=== PATIENT | male | born 1955 | race Caucasian/White ===

== ENCOUNTER 2018-04-04 18:58 | Emergency (ER) | payer OTHER ==
[~2018-04-04] VITALS: Ht 188 cm; Wt 77.1 kg
[2018-04-04] MEDS ORDERED: NS 100ML 100 ML IV ONE (18:59)
[2018-04-04] MEDS ORDERED: ROCEPHIN ONE (18:59)
[2018-04-04] MEDS ORDERED: SOLU-MEDROL ONE (18:59)
[2018-04-04] MEDS ORDERED: DUONEB 0.5 MG-3 MG/3 ML SOLN IH ONE (19:00)
[2018-04-04] MEDS ORDERED: DUONEB 0.5 MG-3 MG/3 ML SOLN IH STA (19:02)
[2018-04-04] MEDS ORDERED: SOLU-MEDROL IV STA (19:02)
--- NOTE | 2018-04-04 19:05 | NUR ---
Solu medrol 125 mg IVP.
--- NOTE | 2018-04-04 19:08 | NUR ---
Rocephin 1 gram in 100 cc NS IVPB.
--- NOTE | 2018-04-04 19:11 | ER.PDOC ---
General Chief Complaint: General Complaint Stated Complaint: POSSIBLE STROKE Time seen by MD: 19:02 Source: patient, EMS Exam Limitations: clinical condition History of Present Illness Initial Comments pt awake alert but wont talk,sob x 8 days Severity: mild, moderate Activities at Onset: activity/exertion Prior Episodes/Possible Cause: unknown cause Associated Symptoms: denies symptoms Prior symptoms/Treatment: Similar symptoms previous Allergies: Coded Allergies: Penicillins (Verified Allergy, Unknown, Shortness of Breath, 04/04/18) Past Medical History Medical History: COPD Surgical History: no surgical history Family History Significant Family History: no pertinent family hx Social History Smoking: cigarettes Review of Systems Constitutional: no symptoms reported EENTM: no symptoms reported Respiratory: no symptoms reported, see HPI, cough, shortness of breath Cardiovascular: no symptoms reported Gastrointestinal: no symptoms reported Musculoskeletal: no symptoms reported Skin: no symptoms reported Psychiatric/Neurological: no symptoms reported Endocrine: no symptoms reported All Other Systems: Reviewed and Negative Physical Exam General Appearance: No Apparent Distress, WD/WN HEENT: PERRL/EOMI, Normal ENT Inspection Neck: Non-Tender Respiratory: chest non-tender, lungs clear, normal breath sounds, no respiratory distress Cardiovascular: Normal Peripheral Pulses Gastrointestinal: Normal Bowel Sounds Extremities: Normal Range of Motion Neurologic/Psychiatric: missileman II-XII NML as Tested, No Motor/Sensory Deficits, Alert, Other (wont talk) Skin: Normal Color Lymphatic: No Adenopathy Results/Orders Results/Orders Laboratory Tests Test 04/04/18 19:14 04/04/18 19:32 04/04/18 19:38 Blood Gas Sample Site LEFT BRACHIAL ARTRY Blood Gas pH 7.483 (7.350-7.450) Blood Gas PCO2 27.6 mmHg (35.0-45.0) Blood Gas PO2 126.7 mmHg (75.0-100.0) Blood Gas HCO3 20.2 mmol/L (22.0-26.0) Blood Gas Base Excess -1.7 mmol/L (-2.0-2.0) Oswaldo Test N/A Arterial Blood Oxygen Saturation 98.4 % (95-) Deoxyhemoglobin 1.6 % (0.2-0.6) Carboxyhemoglobin 1.7 % (0.5-1.5) Methemoglobin 0.3 % (0.2-0.6) Total Hemoglobin 15.0 % (13.5-17.5) Total Oxygen Concentration 20.5 % (13.5-17.5) Lactic Acid (Blood Gas) 3.0 MMOL/L (0.5-1.0) Blood Gas Temperature 37 Oxygen Delivery Method (LAB) HI CON FiO2 100.0 % (20-101) Bicarbonate 21.1 mmol/L (23-27) White Blood Count 17.0 10^3/uL (4.5-11.0) Red Blood Count 4.89 10^6/uL (4.50-5.90) Hemoglobin 14.1 g/dL (13.9-16.3) Hematocrit 44.7 % (37.0-53.0) Mean Corpuscular Volume 91.4 fL (78-100) Mean Corpuscular Hemoglobin 28.8 pg (26-34) Mean Corpuscular Hemoglobin Concent 31.5 g/dL (33-37) Red Cell Distribution Width 24.1 % (11.5-14.5) Platelet Count 53 10^3/uL (150-400) Neutrophils (%) (Auto) 86.9 % (41.0-85.0) Lymphocytes (%) (Auto) 4.9 % (24.0-44.0) Monocytes (%) (Auto) 3.6 % (5.0-12.0) Neutrophils # (Auto) 14.8 10^3/uL (1.8-7.7) Lymphocytes # (Auto) 0.8 10^3/uL (1.0-4.8) Monocytes # (Auto) 0.6 10^3/uL (0.3-0.8) Absolute Immature Granulocyte (auto 0.76 10^3 u/L (0-2) Eosinophils % 0.0 % (0.0-5.0) Basophils % 0.1 % (0.0-0.2) Basophils # 0.0 10^3/uL (0.0-0.1) Eosinophil Count 0.0 10^3/uL (0.0-0.2) D-Dimer > 35.20 mg/L (0.19-0.49) Sodium Level 142 mmol/L (132-145) Potassium Level 3.8 mmol/L (3.6-5.2) Chloride Level 104.0 mmol/L (96-109) Carbon Dioxide Level 25.4 mmol/L (20.0-32) Anion Gap 16.4 Blood Urea Nitrogen 62 mg/dL (7-18) Creatinine 1.73 mg/dL (0.59-1.40) Estimated GFR () 48.4 (>/=60) BUN/Creatinine Ratio 35.0 Glucose Level 128 mg/dL (70-110) Calcium Level 8.8 mg/dL (8.4-10.5) Total Bilirubin 3.8 mg/dL (0.2-1.0) Aspartate Amino Transf (AST/SGOT) 34 U/L (0-35) Alanine Aminotransferase (ALT/SGPT) 53 U/L (12-78) Alkaline Phosphatase 104 U/L (50-136) Total Protein 8.4 g/dL (6.4-8.2) Albumin 2.1 g/dL (3.4-5.0) Globulin 6.3 Percent Immature Gran (Cell Imm) 4.50 % (0.00-0.50) Differential Total Cells Counted 100 #CELLS Segmented Neutrophils 95 % (31-76) Lymphocytes 3 % (25-36) Monocytes 2 % (3-9) Differential Comment NORMAL Platelet Estimate DECREASED Platelet Morphology NORMAL Blood Morphology Comment NORMAL MORPHOLOGY Administered Medications Medications (Trade) Dose Ordered Sig/Blanca Route PRN Reason Start Time Stop Time Status Last Admin Dose Admin Methylprednisolone Sodium Succinate (Solu-Medrol) 125 mg STAT STAT IV 04/04/18 19:02 04/04/18 19:10 DC 04/04/18 19:12 Ceftriaxone Sodium 1000 mg/ Sodium Chloride 100 ml @ 100 mls/hr STAT ONCE IV 04/04/18 19:30 04/04/18 20:29 04/04/18 19:13 Levalbuterol HCl (Xopenex) 0.63 mg STAT STAT IH 04/04/18 19:37 04/04/18 19:38 DC 04/04/18 19:41 Departure Time of Disposition: 20:17 Disposition: 70 DISC/XFER TO ANOTH TYP [facility]TH Impression: Primary Impression: Dyspnea Condition: Stable Duration or Time Spent with Pa: 30 JO GILMAN MD Apr 04, 2018 19:11
[2018-04-04 19:19] VITALS: BP 127/80
[2018-04-04 19:25] LABS: ABG PCO2 27.6 mmHg (35.0-45.0); ABG PH 7.483 (7.350-7.450); BE(B) -1.7 mmol/L (-2.0-2.0); HCO3act 20.2 mmol/L (22.0-26.0); pO2 126.7 mmHg (75.0-100.0)
[2018-04-04] MEDS ORDERED: ROCEPHIN 1,000 MG in NS 100ML 100 ML IV ONE (19:30)
[2018-04-04] MEDS ORDERED: XOPENEX IH ONE (19:33)
[2018-04-04 19:36] LABS: BASOPHIL % 0.1 % (0.0-0.2); HEMOGLOBIN 14.1 g/dL (13.9-16.3); LYMPHOCYTES # 0.8 10^3/uL (1.0-4.8); LYMPHOCYTES % 4.9 % (24.0-44.0); MEAN CELL HGB 28.8 pg (26-34); MEAN CELL HGB CONCENTRATION 31.5 g/dL (33-37); MEAN CORP VOLUME 91.4 fL (78-100); MONOCYTES # 0.6 10^3/uL (0.3-0.8); MONOCYTES % 3.6 % (5.0-12.0); NEUTROPHIL # 14.8 10^3/uL (1.8-7.7); NEUTROPHILS % 86.9 % (41.0-85.0); PLATELET COUNT 53 10^3/uL (150-400); RED CELL DISTRIBUTION WIDTH 24.1 % (11.5-14.5)
[2018-04-04] MEDS ORDERED: XOPENEX IH STA (19:37)
[2018-04-04 19:40] VITALS: BP 127/80
--- NOTE | 2018-04-04 19:48 | DIREP ---
PROCEDURE:CHEST 1 VIEW COMPARISON:None. INDICATIONS:DIMINISHED BREATH SOUNDS FINDINGS: LUNGS/PLEURA:Possible medial left basilar infiltrate. No other significant pulmonary parenchymal abnormalities. No effusions. VASCULATURE:Mild cardiomegaly. CARDIAC:Normal. No cardiac silhouette abnormality or cardiomegaly. MEDIASTINUM:Soft tissue prominence in the left superior mediastinum, aortic aneurysm or mediastinal mass possible. BONES:Normal. No fracture or visible bony lesion. OTHER:Negative. CONCLUSION:Possible medial left basilar infiltrate. Mild cardiomegaly. Soft tissue prominence in the left superior mediastinum, aortic aneurysm or mediastinal mass possible. Dictated by: Sanket Spivey M.D. on 04/04/2018 at 07:43 PM
[2018-04-04 19:53] LABS: CALCIUM 8.8 mg/dL (8.4-10.5); CARBON DIOXIDE 25.4 mmol/L (20.0-32)
[2018-04-04 20:09] LABS: DIFFERENTIAL COMMENT NORMAL; LYMPHOCYTE 3 % (25-36); MONOCYTE 2 % (3-9); SEGMENTED NEUTROPHILS 95 % (31-76)
[2018-04-04 20:11] VITALS: BP 120/62
--- NOTE | 2018-04-04 20:12 | NUR ---
D-DIMER 35.2, DR GILMAN NOTIFIED
--- NOTE | 2018-04-04 20:30 | NUR ---
TRANSFER PATIENT ACCEPTED AT [facility] ER BY DR MATT PATIENT NOTIFIED, AGREED TO TRANSFER
--- NOTE | 2018-04-04 20:53 | NUR ---
EMS DISPATCHED FOR TRANSFER
--- NOTE | 2018-04-04 21:15 | NUR ---
EMS AT BEDSIDE TO TAKE PATIENT TO [facility] ER VIA AMBULANCE. REPORT GIVEN TO BOLIVAR
[2018-04-04 21:22] VITALS: BP 121/81
--- NOTE | 2018-04-05 01:34 | PCM.EKG ---
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
== END 2018-04-04 21:20 | disposition other institution (70) ==
LOC: ER 18:58
DX: R06.02 Shortness of breath (principal); R05 Cough; F17.210 Nicotine dependence, cigarettes, uncomplicated; Z88.0 Allergy status to penicillin
CPT/HCPCS: 36415; 36600; 71045; 80053; 82803; 85025; 85379; 93005; 94640; 96365; 96375; 99285; J0696 ×2; J2930; J3490; J7050 ×2; J7620